=== PATIENT | female | born 1965 | race American Indian/Alaskan Native ===

== ENCOUNTER 2020-02-15 15:40 | Emergency (ER) | payer MEDICAID, OTHER ==
[~2020-02-15] VITALS: Ht 165.1 cm; Wt 65.5 kg
[~2020-02-15 15:40] MED LIST: AMLO5TAB21 PO; ASPI81TA52 PO; FLUO40CA10 PO; HYDR-4353 PO; INSU100C10 SQ; LANTUS SQ; QUET-1 PO; VAL5T PO
[2020-02-15 16:47] LABS: BASOPHILS % (AUTO) 0.5 % (0-1); EOSINOPHILS # (AUTO) 0.1 X10'3 (0-0.9); EOSINOPHILS % (AUTO) 2.5 % (0-6); HEMATOCRIT 34.8 % (35.0-45.0); HEMOGLOBIN 12.1 g/dl (12.0-16.0); LYMPHOCYTES % (AUTO) 35.6 % (21-51); MEAN CORPUSCULAR HEMOGLOBIN 31.8 PG (27.0-31.0); MEAN CORPUSCULAR HGB CONC 34.8 g/dL (33.0-36.5); MEAN CORPUSCULAR VOLUME 91.3 FL (78-98); MEAN PLATELET VOLUME 7.8 FL (7.4-10.4); MONOCYTES # (AUTO) 0.3 X10'3 (0-0.9); MONOCYTES % (AUTO) 6.2 % (2-12); NEUTROPHILS % (AUTO) 55.2 % (42-75); PLATELET COUNT 245 X10'3 (140-440); RED BLOOD COUNT 3.81 X10'6 (4.20-5.60); RED CELL DISTRIBUTION WIDTH 13.3 % (11.5-14.5); WHITE BLOOD COUNT 5.5 X10'3 (4.5-11.0)
[2020-02-15 16:55] LABS: ALANINE AMINOTRANSFERASE 17 U/L (12-78); ALBUMIN 1.9 G/DL (3.4-5.0); ALBUMIN/GLOBULIN RATIO 0.4 (1.1-1.5); ALKALINE PHOSPHATASE 209 IU/L (46-116); ANION GAP 5 (8-16); ASPARTATE AMINO TRANSFERASE 24 U/L (10-37); BILIRUBIN,TOTAL 0.2 MG/DL (0.1-1.0); BLOOD UREA NITROGEN 21 MG/DL (7-18); BUN/CREATININE RATIO 15.7 (6.6-38.0); CALCIUM 8.8 MG/DL (8.5-10.1); CHLORIDE 100 MMOL/L (99-107); CREATININE 1.34 MG/DL (0.40-0.90); GLUCOSE 425 MG/DL (70-104); LIPASE 275 U/L (73-393); POTASSIUM 4.7 MMOL/L (3.5-5.1); SODIUM 132 MMOL/L (135-145); TOTAL CARBON DIOXIDE 27.5 MMOL/L (24-32); TOTAL PROTEIN 6.5 G/DL (6.4-8.2); eGFR 41 ML/MIN
[2020-02-15] MEDS ORDERED: POLY17PO10 PO (17:07)
[2020-02-15] MEDS ORDERED: HYDROcodone/acetaminophen 10/325mg tab PO ONE (17:30)
[2020-02-15 17:40] VITALS: BP 185/94
== END 2020-02-15 17:37 | disposition home or self-care (01) ==
LOC: ER 15:40
DX: K59.09 Other constipation (principal); R10.11 Right upper quadrant pain; R10.13 Epigastric pain; E11.65 Type 2 diabetes mellitus with hyperglycemia; I10 Essential (primary) hypertension; G89.29 Other chronic pain; F31.9 Bipolar disorder, unspecified; Z88.0 Allergy status to penicillin; Z79.82 Long term (current) use of aspirin; Z79.4 Long term (current) use of insulin; Z79.899 Other long term (current) drug therapy
CPT/HCPCS: 36415; 76700; 80053; 83690; 85025; 99284

== ENCOUNTER 2021-05-02 06:58 | Day surgery (SDC) | payer MEDICAID ==
[~2021-05-02] VITALS: Ht 165.1 cm; Wt 70.8 kg
[~2021-05-02 06:58] MED LIST changes: +AMLO10TA13 PO; -AMLO5TAB21 PO; +ATEN25TA PO; +ATOR10TA70 PO; +BUPR-317 PO; +BUPR1FIL17 SL; +BUPR1PAT3 TOP; +BUSP5TAB3 PO; +CHOL500050 PO; +DOCU100C59 PO; +ENAL10TA19 PO; +FLUO40CA PO; -FLUO40CA10 PO; +FURO20TA4 PO; -HYDR-4353 PO; -INSU100C10 SQ; +INSU100I31 SQ; -LANTUS SQ; +OMEP-50 PO; -QUET-1 PO; +QUET50TA22 PO; -VAL5T PO
[2021-05-02 07:31] VITALS: BP 189/93
[2021-05-02] MEDS ORDERED: normal saline 1000ml 1,000 ML IV SCH (07:40)
[2021-05-02] MEDS ORDERED: OMEP-50 PO (08:01)
[2021-05-02] MEDS ORDERED: LIDOCAINE PATCH (08:01)
[2021-05-02] MEDS ORDERED: LANTUS SQ (08:01)
[2021-05-02] MEDS ORDERED: KETO5DRO11 OP (08:01)
[2021-05-02] MEDS ORDERED: LIDOcaine 1%/PF 5ML 10 MG/ML VIAL ONE (08:08)
[2021-05-02] MEDS ORDERED: fentaNYL/PF 50MCG/1 ML 2ML syringe ONE (08:39)
[2021-05-02] MEDS ORDERED: heparin 1,000unit/ml 10ml vial 10 ML ONE (08:39)
[2021-05-02] MEDS ORDERED: midazolam 1 mg/ML 2ml injection ONE (08:39)
[2021-05-02 08:46] LABS: BASOPHILS % (AUTO) 0.6 % (0-1); EOSINOPHILS # (AUTO) 0.2 X10'3 (0-0.9); EOSINOPHILS % (AUTO) 3.2 % (0-6); HEMATOCRIT 26.9 % (35.0-45.0); HEMOGLOBIN 9.1 g/dl (12.0-16.0); LYMPHOCYTES # (AUTO) 1.2 X10'3 (1.1-4.8); LYMPHOCYTES % (AUTO) 19.8 % (21-51); MEAN CORPUSCULAR HEMOGLOBIN 33.4 PG (27.0-31.0); MEAN CORPUSCULAR HGB CONC 33.8 g/dL (33.0-36.5); MEAN CORPUSCULAR VOLUME 98.8 FL (78-98); MEAN PLATELET VOLUME 7.3 FL (7.4-10.4); MONOCYTES # (AUTO) 0.5 X10'3 (0-0.9); MONOCYTES % (AUTO) 7.7 % (2-12); NEUTROPHILS # (AUTO) 4.3 X10'3 (1.8-7.7); NEUTROPHILS % (AUTO) 68.7 % (42-75); PLATELET COUNT 308 X10'3 (140-440); RED BLOOD COUNT 2.72 X10'6 (4.20-5.60); RED CELL DISTRIBUTION WIDTH 14.6 % (11.5-14.5); WHITE BLOOD COUNT 6.3 X10'3 (4.5-11.0)
[2021-05-02 08:59] LABS: ALBUMIN 1.6 G/DL (3.4-5.0); ANION GAP 15 (8-16); BLOOD UREA NITROGEN 85 MG/DL (7-18); BUN/CREATININE RATIO 14.8 (6.6-38.0); CALCIUM 7.2 MG/DL (8.5-10.1); CHLORIDE 106 MMOL/L (99-107); CREATININE 5.73 MG/DL (0.40-0.90); GLUCOSE 227 MG/DL (70-104); POTASSIUM 4.6 MMOL/L (3.5-5.1); SODIUM 138 MMOL/L (135-145); TOTAL CARBON DIOXIDE 17.1 MMOL/L (24-32); eGFR 8 ML/MIN
[2021-05-02 09:32] VITALS: BP 147/72
[2021-05-02 09:45] VITALS: BP 169/78
[2021-05-02 10:00] VITALS: BP 181/81
[2021-05-02 10:15] VITALS: BP 176/74
== END 2021-05-02 10:35 | disposition home or self-care (01) ==
LOC: SSTAY O 06:58
PROVIDERS: ATTEND Radiology Vascular & Interventional Radiology
DX: E11.22 Type 2 diabetes mellitus with diabetic chronic kidney disease (principal); I12.0 Hypertensive chronic kidney disease with stage 5 chronic kidney disease or end stage renal disease; N18.6 End stage renal disease; J45.909 Unspecified asthma, uncomplicated; Z98.890 Other specified postprocedural states; Z94.7 Corneal transplant status; Z79.899 Other long term (current) drug therapy; Z79.4 Long term (current) use of insulin; Z79.82 Long term (current) use of aspirin; Z88.1 Allergy status to other antibiotic agents; Z88.8 Allergy status to other drugs, medicaments and biological substances; Z82.49 Family history of ischemic heart disease and other diseases of the circulatory system; Z83.3 Family history of diabetes mellitus
CPT/HCPCS: 36415; 36558; 76937; 77001; 80048; 82948; 85025; 85610; 99152; 99153; C1750; C1769; C1894; J1644; J2250; J3010; A9270

== ENCOUNTER 2021-06-30 16:49 | Emergency (ER) | payer MEDICAID ==
[~2021-06-30] VITALS: Ht 160 cm; Wt 68.2 kg
[~2021-06-30 16:49] MED LIST changes: -BUPR-317 PO; -BUPR1FIL17 SL; -BUPR1PAT3 TOP; -BUSP5TAB3 PO; -CHOL500050 PO; -INSU100I31 SQ; +KETO5DRO11 OP; +LANTUS SQ; +LIDOCAINE PATCH; -QUET50TA22 PO; +QUET50TA24 PO
[2021-06-30 17:54] VITALS: BP_DIAS 100
[2021-06-30] MEDS ORDERED: hydrALAZINE 25 MG tablet PO STA (18:29)
[2021-06-30 18:38] VITALS: BP_SYST 212
== END 2021-06-30 18:45 | disposition home or self-care (01) ==
LOC: ER 16:50
DX: B99.8 Other infectious disease (principal); I10 Essential (primary) hypertension; J45.909 Unspecified asthma, uncomplicated; E11.9 Type 2 diabetes mellitus without complications; G89.29 Other chronic pain; F31.9 Bipolar disorder, unspecified; Z49.01 Encounter for fitting and adjustment of extracorporeal dialysis catheter; Z98.890 Other specified postprocedural states; Z88.0 Allergy status to penicillin; Z88.1 Allergy status to other antibiotic agents; Z88.8 Allergy status to other drugs, medicaments and biological substances; Z79.82 Long term (current) use of aspirin; Z79.899 Other long term (current) drug therapy; Z79.4 Long term (current) use of insulin
CPT/HCPCS: 99284

== ENCOUNTER 2021-07-03 08:57 | Day surgery (SDC) | payer MEDICAID ==
[~2021-07-03] VITALS: Ht 165.1 cm; Wt 68.6 kg
[2021-07-03] MEDS ORDERED: normal saline 1000ml 1,000 ML IV SCH (09:30)
[2021-07-03 09:50] VITALS: BP 198/110
[2021-07-03] MEDS ORDERED: clindamycin 600mg/D5W 50ml 50 ML IV ONE (09:55)
[2021-07-03] MEDS ORDERED: BUSP5TAB3 PO (10:33)
[2021-07-03] MEDS ORDERED: ALBUTEROL (10:33)
[2021-07-03] MEDS ORDERED: FLUTICASONE (10:33)
[2021-07-03] MEDS ORDERED: LIDOcaine 1%/PF 5ML 10 MG/ML VIAL ONE (10:49)
[2021-07-03] MEDS ORDERED: heparin 1,000unit/ml 10ml vial 10 ML ONE (10:49)
[2021-07-03] MEDS ORDERED: midazolam 1 mg/ML 2ml injection ONE ×2 (10:50→11:23)
[2021-07-03] MEDS ORDERED: fentaNYL/PF 50MCG/1 ML 2ML syringe ONE (10:50)
[2021-07-03] MEDS ORDERED: LIDOcaine 1% W/epiNEPHrine 1:200,000 10ml vial ONE ×2 (10:56→11:20)
[2021-07-03 12:00] VITALS: BP 165/91
[2021-07-03 12:15] VITALS: BP 154/60
[2021-07-03 12:30] VITALS: BP 151/82
[2021-07-03 12:54] VITALS: BP 179/95
[2021-07-03 13:36] VITALS: BP 168/88
== END 2021-07-03 13:55 | disposition home or self-care (01) ==
LOC: SSTAY O 08:57
PROVIDERS: ATTEND Preventive Medicine Aerospace Medicine
DX: E11.22 Type 2 diabetes mellitus with diabetic chronic kidney disease (principal); I12.0 Hypertensive chronic kidney disease with stage 5 chronic kidney disease or end stage renal disease; N18.6 End stage renal disease; F32.9 Major depressive disorder, single episode, unspecified; Z88.1 Allergy status to other antibiotic agents; Z88.0 Allergy status to penicillin; Z79.899 Other long term (current) drug therapy; Z79.82 Long term (current) use of aspirin; Z98.890 Other specified postprocedural states; Z89.612 Acquired absence of left leg above knee; Z86.19 Personal history of other infectious and parasitic diseases; Z79.4 Long term (current) use of insulin; Z83.3 Family history of diabetes mellitus; Z82.49 Family history of ischemic heart disease and other diseases of the circulatory system
CPT/HCPCS: 36558; 76937; 77001; 99152; 99153; C1750; J1644; J2250; J3010

== ENCOUNTER 2021-07-12 07:33 | Day surgery (SDC) | payer MEDICAID ==
[2021-07-12] VITALS (8 sets, daily range): BP systolic 131–211; BP diastolic 68–109
[~2021-07-12] VITALS: Ht 167.6 cm; Wt 68.6 kg
[~2021-07-12 07:33] MED LIST changes: +ALBUTEROL; -ATEN25TA PO; +BUSP5TAB3 PO; +FLUTICASONE; -KETO5DRO11 OP; +albuterol 2.5 MG/3 ML nebule NEB PRN; +famotidine 20mg tablet PO ONE; +ringers solution, lacted 1,000 ML IV SCH
[2021-07-12] MEDS ORDERED: ceFAZolin 1GM/D5W- ADD-VANTAGE 50 ML IV ONE (07:45)
--- NOTE | 2021-07-12 08:00 | NUR ---
PT. UNABLE TO STAND AT SCALE AT THIS TIME-STATED WEIGHT 151 LBS. Addendum: 07/12/21 at 1114 by Kiera Moody RN Amended: Links added.
[2021-07-12] MEDS ORDERED: normal saline 500ml IV soln 500 ML IV ONE (08:50)
[2021-07-12] MEDS ORDERED: lisinopril 10 MG tablet PO ONE (09:05)
[2021-07-12] MEDS ORDERED: insulin regular, human 10 units/0.1 ml syringe SQ STA (09:12)
[2021-07-12 09:19] LABS: BASOPHILS % (AUTO) 0.4 % (0-1); EOSINOPHILS # (AUTO) 0.1 X10'3 (0-0.9); EOSINOPHILS % (AUTO) 2.1 % (0-6); LYMPHOCYTES # (AUTO) 1.4 X10'3 (1.1-4.8); LYMPHOCYTES % (AUTO) 23.1 % (21-51); MEAN CORPUSCULAR VOLUME 94.2 FL (78-98); MEAN PLATELET VOLUME 8.1 FL (7.4-10.4); MONOCYTES # (AUTO) 0.5 X10'3 (0-0.9); MONOCYTES % (AUTO) 7.8 % (2-12); NEUTROPHILS # (AUTO) 4.1 X10'3 (1.8-7.7); NEUTROPHILS % (AUTO) 66.6 % (42-75); PRE OP HEMATOCRIT 39.2 % (35.0-45.0); PRE OP HEMOGLOBIN 13.3 g/dL (12.0-16.0); PRE OP PLATELET COUNT 165 X10'3 (140-440); RED BLOOD COUNT 4.16 X10'6 (4.20-5.60); RED CELL DISTRIBUTION WIDTH 13.5 % (11.5-14.5)
[2021-07-12 09:37] LABS: ALBUMIN 1.8 G/DL (3.4-5.0); ALBUMIN/GLOBULIN RATIO 0.4 (1.1-1.5); ALKALINE PHOSPHATASE 380 IU/L (46-116); BLOOD UREA NITROGEN 34 MG/DL (7-18); BUN/CREATININE RATIO 9.7 (6.6-38.0); CALCIUM 7.8 MG/DL (8.5-10.1); CHLORIDE 101 MMOL/L (99-107); PRE OP ALT 21 U/L (30-65); PRE OP ANION GAP 10 (8-16); PRE OP AST 19 U/L (10-37); PRE OP BILIRUB, TOTAL 0.2 MG/DL (0.0-1.0); PRE OP POTASSIUM 5.4 MMOL/L (3.4-5.1); PRE OP SODIUM 136 MMOL/L (135-145); TOTAL CARBON DIOXIDE 24.7 MMOL/L (24-32); TOTAL PROTEIN 6.4 G/DL (6.4-8.2); eGFR 14 ML/MIN
[2021-07-12 09:40] LABS: PRE OP GLUCOSE 417 MG/DL (70-104)
--- NOTE | 2021-07-12 10:16 | NUR ---
BP 216/103 10 MG METOPROLOL IV GIVEN PER DR. SALMERON/DR. CORDOBA. Addendum: 07/12/21 at 1135 by Kiera Moody RN Amended: Links added.
[2021-07-12] MEDS ORDERED: CLINDAMYCIN/D5W 900mg/50ml 50 ML IV STA (10:18)
--- NOTE | 2021-07-12 10:20 | NUR ---
BG 398 MD NOTIFIED. 10 UNITS REGULAR INSULIN GIVEN SQ PER MD ORDER. RECHECKED AT 1014. BG 384 AT 1015. WILL RECHECK AGAIN. Addendum: 07/12/21 at 1114 by Keira Moody RN Amended: Links added.
[2021-07-12] MEDS ORDERED: metoprolol tartrate 1mg/ml inj IV ONE (10:25)
[2021-07-12] MEDS ORDERED: clindamycin phosphate inj 900 MG in normal saline 50ml IV soln 44 ML IV ONE (10:40)
[2021-07-12] MEDS ORDERED: LIDOcaine 1% W/epiNEPHrine 1:100,000 20ml vial ONE (11:12)
[2021-07-12] MEDS ORDERED: BUPIVAcaine 0.5% inj/PF 30 ML ONE (11:12)
[2021-07-12] MEDS ORDERED: heparin 10,000 units/1 ML INJ ONE (11:12)
[2021-07-12] MEDS ORDERED: insulin regular, human 10 units/0.1 ml syringe IV ONE (11:15)
--- NOTE | 2021-07-12 11:34 | NUR ---
BG 1129 190/102 Addendum: 07/12/21 at 1135 by Kiera Moody RN Amended: Links added.
[2021-07-12] MEDS ORDERED: sevoflurane 250ml liquid IH ONE (11:36)
[2021-07-12] MEDS ORDERED: fentaNYL/PF 50MCG/1 ML 2ML syringe ONE (11:46)
--- NOTE | 2021-07-12 11:50 | NUR ---
SPOKE WITH SHANA SANFORD FOR PT. GAVE HIM TIME FRAME OF SURGERY AND RECOVERY. Addendum: 07/12/21 at 1151 by Kiera Moody RN Amended: Links added.
[2021-07-12] MEDS ORDERED: ondansetron/PF 4mg/2ml inj ONE (12:23)
[2021-07-12] MEDS ORDERED: propofol inj 20 ML IV ONE (12:23)
[2021-07-12] MEDS ORDERED: midazolam 1 mg/ML 2ml injection ONE (12:23)
[2021-07-12] MEDS ORDERED: LIDOcaine 2% (20mg/ml) 5ml vial ONE (12:23)
[2021-07-12] MEDS ORDERED: dexamethasone sod phosphate 4mg/ml inj. ONE (12:23)
[2021-07-12] MEDS ORDERED: bacitracin 15gm ointment TP ONE (13:26)
--- NOTE | 2021-07-12 13:49 | NUR ---
Received from OR via [facility] , accompanied by Anesthesiologist MIHIR and report given by Anesthesiolgist. PATIENT WITH 20G PIV IN RIGHT HAND RUNNING NS AT 10.VSS. LEFT FOREARM DRESSING PRESENT AND IS CDI. PATIENT WITH 10L MASK ON WITH 100% SATURATIONS. Addendum: 07/12/21 at 1358 by Yasir Myers RN, RN Amended: Links added.
--- NOTE | 2021-07-12 15:17 | NUR ---
PATIENT HAS MET ALL CRITERIA FOR TRANSFER TO THE SURGICAL/ASCENCION/PCU/ORTHO/ICU FLOOR. VSS. DRESSINGS INTACT. BED LOW, CALL LIGHT PRESENT AND 2 RAILS UP. RN PRESENT TO ACCEPT CARE OF PATIENT AND REPORT HAS BEEN CALLED. ALL QUESTIONS ANSWERED TO ACCEPTING RN. BELONGINGS GATHERED FROM [facility] PRIOR TO LEAVING TO CARE OF SON WHOM WAS TAKING HER TO THE DIALYSIS. C.O. HUNGER DESPITE JUICE AND COFFEE. Addendum: 07/12/21 at 1518 by Yasir Hutchinson - LY RN Amended: Links added.
== END 2021-07-12 14:49 | disposition home or self-care (01) ==
LOC: PAS 07:33
PROVIDERS: ATTEND Surgery
DX: E11.22 Type 2 diabetes mellitus with diabetic chronic kidney disease (principal); I12.0 Hypertensive chronic kidney disease with stage 5 chronic kidney disease or end stage renal disease; N18.6 End stage renal disease; F31.9 Bipolar disorder, unspecified; J44.9 Chronic obstructive pulmonary disease, unspecified; G47.30 Sleep apnea, unspecified; Z87.891 Personal history of nicotine dependence; Z79.899 Other long term (current) drug therapy; Z79.82 Long term (current) use of aspirin; Z88.0 Allergy status to penicillin; Z88.8 Allergy status to other drugs, medicaments and biological substances; Z85.038 Personal history of other malignant neoplasm of large intestine; Z98.890 Other specified postprocedural states; Z89.612 Acquired absence of left leg above knee; Z83.3 Family history of diabetes mellitus; Z82.49 Family history of ischemic heart disease and other diseases of the circulatory system
CPT/HCPCS: 36415; 36830; 80053; 82948; 85025; 93005; 94640; 94664; 94760; C1768; J1100; J1644; J1815; J2001; J2250; J2405; J2704; J3010; J3490; J7040; J7120; Z7506; Z7508; Z7512; A4215; A4618; A6446; A7000

== ENCOUNTER 2021-08-21 07:13 | Day surgery (SDC) | payer MEDICAID ==
[~2021-08-21] VITALS: Ht 165.1 cm; Wt 67.6 kg
[~2021-08-21 07:13] MED LIST changes: -albuterol 2.5 MG/3 ML nebule NEB PRN; -famotidine 20mg tablet PO ONE; -ringers solution, lacted 1,000 ML IV SCH
[2021-08-21 07:43] VITALS: BP 145/88
[2021-08-21] MEDS ORDERED: tPA-cathflo 2 MG/2 ml IV flush ONE (08:10)
--- NOTE | 2021-08-21 08:15 | NUR ---
Samuel MIKE at bedside for procedure
[2021-08-21] MEDS ORDERED: ondansetron/PF 4mg/2ml inj ONE (08:30)
[2021-08-21] MEDS ORDERED: ondansetron/PF 4mg/2ml inj IV ONE (08:30)
[2021-08-21] MEDS ORDERED: LORazepam 1 MG tablet PO ONE (08:35)
[2021-08-21 08:41] LABS: ALBUMIN 2.1 G/DL (3.4-5.0); ANION GAP 10 (8-16); BLOOD UREA NITROGEN 71 MG/DL (7-18); BUN/CREATININE RATIO 16.8 (6.6-38.0); CHLORIDE 100 MMOL/L (99-107); CREATININE 4.23 MG/DL (0.40-0.90); GLUCOSE 200 MG/DL (70-104); SODIUM 136 MMOL/L (135-145); TOTAL CARBON DIOXIDE 26.1 MMOL/L (24-32); eGFR 11 ML/MIN
[2021-08-21 08:51] LABS: POTASSIUM 6.2 MMOL/L (3.5-5.1)
[2021-08-21 08:53] LABS: BASOPHILS % (AUTO) 0.4 % (0-1); EOSINOPHILS # (AUTO) 0.2 X10'3 (0-0.9); EOSINOPHILS % (AUTO) 2.6 % (0-6); HEMATOCRIT 32.6 % (35.0-45.0); HEMOGLOBIN 11.2 g/dl (12.0-16.0); LYMPHOCYTES # (AUTO) 1.8 X10'3 (1.1-4.8); LYMPHOCYTES % (AUTO) 29.5 % (21-51); MEAN CORPUSCULAR HEMOGLOBIN 32.2 PG (27.0-31.0); MEAN CORPUSCULAR HGB CONC 34.4 g/dL (33.0-36.5); MEAN CORPUSCULAR VOLUME 93.6 FL (78-98); MEAN PLATELET VOLUME 7.9 FL (7.4-10.4); MONOCYTES # (AUTO) 0.5 X10'3 (0-0.9); MONOCYTES % (AUTO) 7.9 % (2-12); NEUTROPHILS # (AUTO) 3.6 X10'3 (1.8-7.7); NEUTROPHILS % (AUTO) 59.6 % (42-75); PLATELET COUNT 202 X10'3 (140-440); RED BLOOD COUNT 3.48 X10'6 (4.20-5.60); WHITE BLOOD COUNT 6.1 X10'3 (4.5-11.0)
[2021-08-21 10:20] VITALS: BP 145/87
--- NOTE | 2021-08-21 10:22 | NUR ---
Pt laying in bed, reports less nausea and states she has been able to "get a little nap". Denies pain, cp or palpitations. Will continue to monitor.
[2021-08-21] MEDS ORDERED: LIDOcaine 1%/PF 5ML 10 MG/ML VIAL ONE (11:09)
[2021-08-21] MEDS ORDERED: midazolam 1 mg/ML 2ml injection ONE (11:09)
[2021-08-21] MEDS ORDERED: fentaNYL/PF 50MCG/1 ML 2ML syringe ONE ×2 (11:10→13:33)
[2021-08-21] MEDS ORDERED: heparin 1,000 UNITS/NS 500ml 500 ML ONE ×3 (11:10→14:35)
[2021-08-21] MEDS ORDERED: iohexol 300mg/ml 100ml inj. ONE ×2 (11:10→13:09)
[2021-08-21] MEDS ORDERED: heparin 1,000unit/ml 10ml vial 10 ML ONE (12:12)
[2021-08-21 15:40] VITALS: BP 117/40
[2021-08-21 16:00] VITALS: BP 150/74
--- NOTE | 2021-08-21 16:00 | NUR ---
DR SINGH AT BEDSIDE WITH ULTRASOUND TO BLEEDING SITE ON ARM, ASSESSING PATIENT. ANGIO STAFF AT BEDSIDE
[2021-08-21 16:16] VITALS: BP 145/72
--- NOTE | 2021-08-21 16:30 | NUR ---
PER DR SINGH PT DISCHARGING NOW SO SHE CAN MAKE IT TO DIALYSIS BEFORE 5. NO FURTHER BLEEDING AT LEFT ARM GRAFT SITE
== END 2021-08-21 16:35 | disposition home or self-care (01) ==
LOC: SSTAY O 07:13
PROVIDERS: ATTEND Radiology Vascular & Interventional Radiology
DX: T82.868A Thrombosis due to vascular prosthetic devices, implants and grafts, initial encounter (principal); E10.22 Type 1 diabetes mellitus with diabetic chronic kidney disease; I13.2 Hypertensive heart and chronic kidney disease with heart failure and with stage 5 chronic kidney disease, or end stage renal disease; N18.6 End stage renal disease; I50.9 Heart failure, unspecified; Z88.0 Allergy status to penicillin; Z88.1 Allergy status to other antibiotic agents; Z88.8 Allergy status to other drugs, medicaments and biological substances; Z79.899 Other long term (current) drug therapy; Z79.4 Long term (current) use of insulin; Z79.82 Long term (current) use of aspirin; Z98.890 Other specified postprocedural states; Z89.622 Acquired absence of left hip joint; Z82.49 Family history of ischemic heart disease and other diseases of the circulatory system; Z83.3 Family history of diabetes mellitus; Y83.2 Surgical operation with anastomosis, bypass or graft as the cause of abnormal reaction of the patient, or of later complication, without mention of misadventure at the time of the procedure; Y92.89 Other specified places as the place of occurrence of the external cause
CPT/HCPCS: 36415; 36905; 80048; 85025; 85610; 99152; 99153; C1725; C1769; C1894; J1644; J2250; J2405; J2997; J3010; Q9967